=== PATIENT | female | born 1930 | race Caucasian/White ===

== ENCOUNTER → 2017-01-09 | Outpatient (CLI) | payer BC ==
[~2017-01-09] MED LIST: ASPI325T39 PO; CEFD1CAP14 PO; CHOL400T PO; CPR500 PO; ENOX30IN4 SQ; ERGO1CAP35 PO; FSMD/70 PO; LSN/10125 PO; MAGN400T6 PO; MGNO400 PO; MRLP17X PO; MULT-190 PO; OCCUVITE PO; OXYC-57 PO; PANT40TA PO; PRN10125 PO; SIMV40TA2 PO
[2017-01-09 10:56] LABS: HEMATOCRIT 42.5 % (37-47); MEAN CELL VOLUME 100.2 fL (80-100); MEAN CORPUSCULAR HEMOGLOBIN 33.7 pg (25-34); MEAN CORPUSCULAR HGB CONC 33.6 g/dl (32-36); MEAN PLATELET VOLUME 10.8 fL (7.4-10.4); PLATELET COUNT 296 K/uL (130-400); RED BLOOD COUNT 4.24 M/uL (4.2-5.4); WHITE BLOOD COUNT 7.16 K/uL (4.8-10.8)
[2017-01-09 11:11] LABS: ALT/SGPT 18 U/L (12-78); BLOOD UREA NITROGEN 23 mg/dl (7-18); BUN/CREATININE RATIO 20.5 (10-20); CALCIUM 8.7 mg/dl (8.5-10.1); CARBON DIOXIDE 31 mmol/L (21-32); CHLORIDE 99 mmol/L (98-107); CHOLESTEROL 174 mg/dl (0-200); GLUCOSE 96 mg/dl (70-99); POTASSIUM 3.6 mmol/L (3.5-5.1); SODIUM 138 mmol/L (136-145)
[2017-01-09 11:16] LABS: ALB/GLOB RATIO 1.3 (0.9-2); ALKALINE PHOSPHATASE 67 U/L (45-117); AST/SGOT 8 U/L (15-37); CHOLESTEROL/HDL RATIO 1.8; HDL CHOLESTEROL 99 mg/dl; LDL CHOLESTEROL CALCULATED 61 mg/dl; TRIGLYCERIDES 72 mg/dl (0-150); VERY LOW DENSITY LIPOPROT CALC 14 mg/dl
== END | disposition home or self-care (01) ==
LOC: C.LABBC 08:36
PROVIDERS: ATTEND Family Medicine
DX: E55.9 Vitamin D deficiency, unspecified (principal); I10 Essential (primary) hypertension; E78.00 Pure hypercholesterolemia, unspecified; M81.0 Age-related osteoporosis without current pathological fracture; D64.9 Anemia, unspecified

== ENCOUNTER → 2017-02-12 | Outpatient (CLI) | payer BC | END | disposition home or self-care (01) | LOC: C.MAMM 12:48 | PROVIDERS: ATTEND Family Medicine | DX: M81.0 Age-related osteoporosis without current pathological fracture (principal); M85.839 Other specified disorders of bone density and structure, unspecified forearm ==

== ENCOUNTER → 2017-04-30 | Outpatient (CLI) | payer BC ==
--- NOTE | 2017-04-30 12:14 | DIAGNOSTIC IMAGING REPORT ---
PELVIS/BILATERAL HIP 2 VIEWS CLINICAL HISTORY: ACCIDENTAL FALL. Pelvic and right hip pain. COMPARISON STUDY: Left hip 05/11/2013. Pelvis 09/23/2011. FINDINGS: There is again noted a right hip hemiarthroplasty. Internal fixation of an old, healed left femoral intertrochanteric fracture. Heterotopic ossification within the right hip. The left hip hardware appears intact. Small amount of heterotopic ossification superior to the left greater trochanter. Small focal defect within the superior left femoral head with associated sclerosis. This may be due to chronic change. The sacrum appears intact. Mildly displaced left superior pubic ramus fracture. This demonstrates up to 4 mm of distraction. There is also nondisplaced left inferior pubic ramus fracture. IMPRESSION: 1. Acute left pubic ring fracture. 2. No acute fracture or dislocation within the right hip. 3. Postoperative changes as described above. Electronically signed by: Kar Acevedo M.D. 04/30/2017 12:12 PM Dictated Date/Time: 04/30/2017 12:07 PM
== END | disposition home or self-care (01) ==
LOC: C.RADBC 11:24
PROVIDERS: ATTEND Nurse Practitioner Adult Health
DX: S32.502A Unspecified fracture of left pubis, initial encounter for closed fracture (principal); W19.XXXA Unspecified fall, initial encounter

== ENCOUNTER 2017-06-16 19:16 | Emergency (ER) | payer BC ==
[~2017-06-16] VITALS: Ht 161.3 cm; Wt 48.0 kg
[~2017-06-16 19:16] MED LIST changes: -CEFD1CAP14 PO; -CHOL400T PO; -CPR500 PO; -FSMD/70 PO; -LSN/10125 PO; -MAGN400T6 PO; -MGNO400 PO; -MRLP17X PO; -MULT-190 PO; -PANT40TA PO
[2017-06-16 19:19] VITALS: TEMP 38.2; Ht 161.3 cm; Wt 48.0 kg
[2017-06-16] MEDS ORDERED: CEFTRIAXONE SOD INJ 1 GM ADDVIAL IV STA (19:34)
[2017-06-16] MEDS ORDERED: ACETAMINOPHEN 325 MG TAB PO STA (19:34)
[2017-06-16] MEDS ORDERED: SODIUM CHLORIDE 0.9% 1000ML 1,000 ML IV STA (19:34)
--- NOTE | 2017-06-16 20:03 | DIAGNOSTIC IMAGING REPORT ---
CHEST ONE VIEW PORTABLE CLINICAL HISTORY: fever COMPARISON STUDY: 05/10/2013 FINDINGS: The cardiac and mediastinal contours are normal. There is no evidence of focal pulmonary consolidation. There is no evidence of failure. No pleural effusions are visualized.[ There is a retrocardiac opacity consistent with a small hiatal hernia IMPRESSION: No active disease in the chest. Electronically signed by: Bert Lara M.D. 06/16/2017 8:01 PM Dictated Date/Time: 06/16/2017 8:01 PM
[2017-06-16] MEDS ORDERED: CHOL400T PO (20:05)
[2017-06-16] MEDS ORDERED: MAGN400T6 PO (20:05)
[2017-06-16] MEDS ORDERED: PANT40TA PO (20:05)
[2017-06-16] MEDS ORDERED: SIMV40TA2 PO (20:05)
[2017-06-16] MEDS ORDERED: FSMD/70 PO (20:05)
[2017-06-16] MEDS ORDERED: LSN/10125 PO (20:05)
[2017-06-16] MEDS ORDERED: MULT-190 PO (20:05)
[2017-06-16 20:12] LABS: BASO % 0.1 %; BASO ABS # 0.01 K/uL (0-0.2); COMPLETE YES; HEMATOCRIT 36.9 % (37-47); IG% 0.3 %; LYMPH % 5.1 %; LYMPH ABS # 0.73 K/uL (1.2-3.4); MEAN CELL VOLUME 99.7 fL (80-100); MEAN CORPUSCULAR HEMOGLOBIN 34.6 pg (25-34); MEAN CORPUSCULAR HGB CONC 34.7 g/dl (32-36); MEAN PLATELET VOLUME 9.3 fL (7.4-10.4); MONO % 6.6 %; NEUT % 87.9 %; PLATELET COUNT 280 K/uL (130-400); WHITE BLOOD COUNT 14.37 K/uL (4.8-10.8)
[2017-06-16 20:19] LABS: ISTAT CREATININE 0.9 mg/dl (0.6-1.3); ISTAT HEMOGLOBIN 12.2 g/dl (12.0-16.0); ISTAT IONIZED CALCIUM 1.12 mmol/l (1.12-1.32)
[2017-06-16 20:23] LABS: PROTHROMBIN TIME (PATIENT) 11.2 SECONDS (9.0-12.0)
[2017-06-16 20:34] LABS: ALT/SGPT 15 U/L (12-78); BLOOD UREA NITROGEN 20 mg/dl (7-18); BUN/CREATININE RATIO 21.4 (10-20); CALCIUM 9.1 mg/dl (8.5-10.1); CARBON DIOXIDE 31 mmol/L (21-32); CHLORIDE 96 mmol/L (98-107); CREATININE 0.93 mg/dl (0.60-1.20); GLUCOSE 132 mg/dl (70-99); MAGNESIUM 1.7 mg/dl (1.8-2.4); POTASSIUM 3.6 mmol/L (3.5-5.1); SODIUM 135 mmol/L (136-145)
[2017-06-16 20:35] LABS: URINE APPEARANCE CLOUDY (CLEAR); URINE BILIRUBIN NEG (NEG); URINE COLOR YELLOW; URINE NITRITE POS (NEG); URINE SPECIFIC GRAVITY 1.023 (1.000-1.030); UROBILINOGEN NEG (NEG); ZZURINE CULT IF INDIC CATH YES
[2017-06-16 20:36] LABS: MANUAL MICROSCOPIC REQUIRED? NO; REVIEW REQ? NO
[2017-06-16 20:40] LABS: ALKALINE PHOSPHATASE 101 U/L (45-117); AST/SGOT 9 U/L (15-37)
[2017-06-16 22:00] VITALS: BP 120/65; PULSE 71; O2SAT 94
[2017-06-16] MEDS ORDERED: CEFD1CAP14 PO (22:26)
--- NOTE | 2017-06-16 22:26 | Medical Consult ---
Consultation Date of Consultation: Jun 16, 2017. Attending Physician: Reason for Consultation: UTI History of Present Illness 86 year old female presented to [facility] with worsening confusion and was found to have a UTI. Patient says that for the past 2-3 weeks she has been more confused than usual. Her confusion comes and goes. She was forgetting to do her accounting and was forgetting how to add numbers making her frustrated. This morning her confusion was worse and she was then brought to the hospital. She has also had a loss of appetite for the past 2-3 weeks. In the ED she was found to have an infection on UA, with a WCC of 14 and temp of 38.2. She was given a dose of ceftriaxone, tylneol and was given 1 L of IV fluids. I was asked to go assess the patient for admission She denied any fevers, chills, nausea, vomiting, urinary symptoms, back pain, diarrhea, or abdominal pain Past Medical/Surgical History Osteopenia HTN HLD Esophagitis Partial R hip replacement Social History Smoking Status: Former Smoker Alcohol Use: socially (2 glasses of vodka daily) Drug Use: none Housing Status: lives alone Occupation Status: retired Allergies Coded Allergies: No Known Allergies (Unverified , 06/16/17) Home Medications Fosamax Vit D HCTZ/Lisinopril Mag Ox Pantoprazole Simvastatin Review of Systems Constitutional: No fever, No chills, No sweats Respiratory: No cough, No shortness of breath Cardiovascular: No chest pain, No edema, No palpitations Abdomen: No pain, No nausea, No vomiting, No diarrhea, No constipation Musculoskeletal: No joint pain, No muscle pain, No calf pain Genitourinary - Female: No dysuria, No urinary frequency, No urinary urgency, No urinary incontinence, No urinary retention, No hematuria Neurologic: + memory loss, No paralysis, No weakness Physical Exam Date Time Temp Pulse Resp B/P (MAP) Pulse Ox O2 Delivery O2 Flow Rate FiO2 06/16/17 22:00 71 20 120/65 94 Room Air 06/16/17 20:42 77 20 125/60 93 Room Air 06/16/17 19:54 84 06/16/17 19:19 38.2 99 20 123/52 93 Room Air General Appearance: WD/WN, no apparent distress ENT: hearing grossly normal, pharynx normal Neck: no adenopathy, no JVD, no carotid bruits Respiratory/Chest: lungs clear, no respiratory distress, no accessory muscle use Cardiovascular: regular rate, rhythm, no edema, no murmur, normal peripheral pulses Abdomen/GI: normal bowel sounds, non tender, soft Back: normal inspection, no CVA tenderness Extremities/Musculoskelatal: normal inspection, no calf tenderness, no pedal edema, normal range of motion, non-tender Neurologic/Psych: alert, normal mood/affect, oriented x 3 Skin: normal color, warm/dry, no rash Laboratory Results Last 24 Hours Test 06/16/17 19:52 06/16/17 20:02 06/16/17 20:07 06/16/17 20:20 White Blood Count 14.37 K/uL Red Blood Count 3.70 M/uL Hemoglobin 12.8 g/dL Hematocrit 36.9 % Mean Corpuscular Volume 99.7 fL Mean Corpuscular Hemoglobin 34.6 pg Mean Corpuscular Hemoglobin Concent 34.7 g/dl Platelet Count 280 K/uL Mean Platelet Volume 9.3 fL Neutrophils (%) (Auto) 87.9 % Lymphocytes (%) (Auto) 5.1 % Monocytes (%) (Auto) 6.6 % Eosinophils (%) (Auto) 0.0 % Basophils (%) (Auto) 0.1 % Neutrophils # (Auto) 12.64 K/uL Lymphocytes # (Auto) 0.73 K/uL Monocytes # (Auto) 0.95 K/uL Eosinophils # (Auto) 0.00 K/uL Basophils # (Auto) 0.01 K/uL RDW Standard Deviation 47.3 fL RDW Coefficient of Variation 13.0 % Immature Granulocyte % (Auto) 0.3 % Immature Granulocyte # (Auto) 0.04 K/uL Prothrombin Time 11.2 SECONDS Prothromb Time International Ratio 1.0 Sodium Level 135 mmol/L Potassium Level 3.6 mmol/L Chloride Level 96 mmol/L Carbon Dioxide Level 31 mmol/L Anion Gap 8.0 mmol/L 19.0 mmol/L Blood Urea Nitrogen 20 mg/dl Creatinine 0.93 mg/dl Est Creatinine Clear Calc Drug Dose 32.9 ml/min Estimated GFR () 64.5 Estimated GFR (Non- 55.6 BUN/Creatinine Ratio 21.4 Random Glucose 132 mg/dl Calcium Level 9.1 mg/dl Magnesium Level 1.7 mg/dl Total Bilirubin 0.7 mg/dl Direct Bilirubin 0.3 mg/dl Aspartate Amino Transf (AST/SGOT) 9 U/L Alanine Aminotransferase (ALT/SGPT) 15 U/L Alkaline Phosphatase 101 U/L Total Creatine Kinase 40 U/L Creatine Kinase MB < 0.5 ng/ml Creatine Kinase MB Ratio Troponin I < 0.015 ng/ml Total Protein 7.1 gm/dl Albumin 3.7 gm/dl Bedside Lactic Acid Venous 1.36 mmol/L Bedside Hemoglobin 12.2 g/dl Bedside Hematocrit 36 % Bedside Sodium 134 mEq/L Bedside Potassium 3.5 mEq/L Bedside Chloride 93 mEq/L Bedside Total CO2 26 mEq/l Bedside Blood Urea Nitrogen 19 mg/dl Bedside Creatinine 0.9 mg/dl Bedside Glucose (other) 137 mg/dl Bedside Ionized Calcium (King) 1.12 mmol/l Urine Color YELLOW Urine Appearance CLOUDY Urine pH 6.0 Urine Specific [place] 1.023 Urine Protein 1+ Urine Glucose (UA) NEG Urine Ketones TRACE Urine Occult Blood 1+ Urine Nitrite POS Urine Bilirubin NEG Urine Urobilinogen NEG Urine Leukocyte Esterase MODERATE Urine WBC (Auto) >30 /hpf Urine RBC (Auto) 5-10 /hpf Urine Hyaline Casts (Auto) 1-5 /lpf Urine Epithelial Cells (Auto) 10-20 /lpf Urine Bacteria (Auto) 4+ Assessment & Plan 86 year old female that presented to [facility] and was found to have a UTI. When assessing the patient she was orientated to person, place and time. She was not confused and was able to conversely freely in conversation. Her son and daughter in law were in the room with her. We thoroughly discussed the case with the family. They stated that after the patient left the hospital she would be going straight home with them to stay for however long the patient needed. They said they would be looking after her. Since the patients mental status was good, she did not have any focal signs of infection on exam and she had already received a dose of antibiotics and IV fluids in the ED it was decided to discharge the patient home with her family. This was discussed with the emergency room doctor who was in agreement with the plan. He said he would be prescribing her cefdinir 300mg bid. The family was in accordance with the plan. We discussed the fact that if the patient were to have any worsening fevers, nausea/vomiting, back pain, worsening confusion, dehydration or loss of appetite then to bring her straight back to the ED. The patient was encouraged to rest and drink plenty of fluids over the next couple days. She will be going home with her son and stay at his home for a few days Resident Physician Supervision Note: I was present with Dr. Beavers during the history and exam. I discussed the case with the resident and agree with the findings and plan as documented in the note. Any exceptions or clarifications are listed here: 86 y/o F HTN, HPL - presents with fever - has had intermittent bouts of confusion over 2-3 weeks Pt was not confused when assessed in ER - initial labs reveal a + UA OE AAO x 3 S1,2 R CTAB NT, ND No CCE P: Pt was assessed by myself the resident and the ER attending in presence of family As she is presently asymptomatic and returning home with her son - will be under supervision, we have advised that DC would be reasonable Pt will receive Omnicef - encouraged to maintain hydration and return to the ER if symptoms worsen - rigors, increased confusion, unremitting fevers or poor PO intake and lethargy Above discussed with pt and family at bedside Documented By: Aleks Ng
--- NOTE | 2017-06-17 01:43 | EMERGENCY ROOM VISIT NOTE ---
History Report prepared by Jhonatanibsaleem: Marina Almendarez Under the Supervision of: Dr. Kg Fernandes D.O. First contact with patient: 19:24 Chief Complaint: ALTERED MENTAL STATUS Stated Complaint: CANT WALK, SHAKING, INCOHERENT, DISORIENTED History of Present Illness The patient is an 86 year old female who presents to the Emergency Room with complaints of altered mental status. She is accompanied by several family members. Her family reports they came to her house around 1700 to get her for dinner and found her to be "shaking and disoriented". They note they have never seen her like that before and reports he seemed very confused. Her son states he was unsure if she had eaten today so he gave her some josh aye prior to arrival. He also reports that approximately 8 weeks ago, the patient fell down some stairs and suffered a concussion and hairline fracture of the hip. The patient admits she has been urinating more frequently recently. She denies any hematuria or dysuria. She is febrile here in the ED with a temperature of 38.2. Her last BM was this morning and normal. She also denies any recent falls, trauma, open wounds, headache, change in vision, chest pain, shortness of breath , nausea, vomiting, diarrhea, pain with urination, and melena. She does admit to urinating more frequently recently. Source of History: patient, family Onset: 1700 today Position: other (global) Associated Symptoms: + fevers, + urinary symptoms (more frequent urination) , No headache, No chest pain, No SOB, No nausea, No vomiting, No melena, No diarrhea Review of Systems See HPI for pertinent positives & negatives. A total of 10 systems reviewed and were otherwise negative. Past Medical & Surgical Medical Problems: (1) FX NECK OF FEMUR NOS-CL (2) GERD (gastroesophageal reflux disease) (3) Hyperlipidemia Social History Smoking Status: Former Smoker Alcohol Use: none Drug Use: none Marital Status: Housing Status: lives alone Occupation Status: retired Current/Historical Medications Scheduled Alendronate/Cholecalciferol (Fosamax+D 70MG/2800 Iu), 1 TABLET PO WK Cefdinir (Omnicef), 300 MG PO Q12H Cholecalciferol (Vitamin D), 400 UNITS PO DAILY Hctz/Lisinopril (Lisinopril/Hctz 10/12.5 Mg), 1 TAB PO DAILY Magnesium Oxide (Mag-Ox), 400 MG PO DAILY Ocuvite Preservision (Ocuvite Preservision), 1 TAB PO BID Simvastatin (Zocor), 40 MG PO QPM Scheduled PRN Pantoprazole (Protonix), 40 MG PO DAILY PRN for ACID REFLUX Allergies Coded Allergies: No Known Allergies (Unverified , 06/16/17) Physical Exam Vital Signs Date Time Temp Pulse Resp B/P (MAP) Pulse Ox O2 Delivery O2 Flow Rate FiO2 06/16/17 22:00 71 20 120/65 94 Room Air 06/16/17 20:42 77 20 125/60 93 Room Air 06/16/17 19:54 84 06/16/17 19:19 38.2 99 20 123/52 93 Room Air Physical Exam GENERAL: Patient is sitting up in bed, cachectic, in no acute distress and non- toxic EYE EXAM: normal conjunctiva, PERRL and EOM's grossly intact OROPHARYNX: no exudate, no erythema, lips, buccal mucosa, and tongue normal and mucous membranes are moist NECK: supple, no nuchal rigidity, no adenopathy, non-tender, no nuchal rigidity LUNGS: Clear to auscultation. Normal chest wall mechanics HEART: Tachycardic heart rate, no murmurs, S1 normal and S2 normal ABDOMEN: abdomen soft, non-tender, normo-active bowel sounds, no masses, no rebound or guarding. BACK: Back is symmetrical on inspection and there is no deformity, no midline tenderness, no CVA tenderness. SKIN: no rashes and no bruising UPPER EXTREMITIES: upper extremities are grossly normal. LOWER EXTREMITIES: No pitting edema. NEURO EXAM: Awake, alert, oriented to person, place but not year. No drift. Finger to nose intact. Gross sensation intact. Medical Decision & Procedures ER Provider Diagnostic Interpretation: Radiology results as stated below per my review and the radiologist's interpretation: CHEST ONE VIEW PORTABLE CLINICAL HISTORY: fever COMPARISON STUDY: 05/10/2013 FINDINGS: The cardiac and mediastinal contours are normal. There is no evidence of focal pulmonary consolidation. There is no evidence of failure. No pleural effusions are visualized. There is a retrocardiac opacity consistent with a small hiatal hernia IMPRESSION: No active disease in the chest. Electronically signed by: Bert Lara M.D. 06/16/2017 8:01 PM Laboratory Results 06/16/17 19:52 Red Blood Count 3.70, Mean Corpuscular Volume 99.7, Mean Corpuscular Hemoglobin 34.6, Mean Corpuscular Hemoglobin Concent 34.7, Mean Platelet Volume 9.3, Neutrophils (%) (Auto) 87.9, Lymphocytes (%) (Auto) 5.1, Monocytes (%) (Auto) 6.6, Eosinophils (%) (Auto) 0.0, Basophils (%) (Auto) 0.1, Neutrophils # (Auto) 12.64, Lymphocytes # (Auto) 0.73, Monocytes # (Auto) 0.95, Eosinophils # (Auto) 0.00, Basophils # (Auto) 0.01 06/16/17 19:52 Test 06/16/17 19:52 06/16/17 20:02 06/16/17 20:07 06/16/17 20:20 White Blood Count 14.37 K/uL (4.8-10.8) Red Blood Count 3.70 M/uL (4.2-5.4) Hemoglobin 12.8 g/dL (12.0-16.0) Hematocrit 36.9 % (37-47) Mean Corpuscular Volume 99.7 fL (80-100) Mean Corpuscular Hemoglobin 34.6 pg (25-34) Mean Corpuscular Hemoglobin Concent 34.7 g/dl (32-36) Platelet Count 280 K/uL (130-400) Mean Platelet Volume 9.3 fL (7.4-10.4) Neutrophils (%) (Auto) 87.9 % Lymphocytes (%) (Auto) 5.1 % Monocytes (%) (Auto) 6.6 % Eosinophils (%) (Auto) 0.0 % Basophils (%) (Auto) 0.1 % Neutrophils # (Auto) 12.64 K/uL (1.4-6.5) Lymphocytes # (Auto) 0.73 K/uL (1.2-3.4) Monocytes # (Auto) 0.95 K/uL (0.11-0.59) Eosinophils # (Auto) 0.00 K/uL (0-0.5) Basophils # (Auto) 0.01 K/uL (0-0.2) RDW Standard Deviation 47.3 fL (36.4-46.3) RDW Coefficient of Variation 13.0 % (11.5-14.5) Immature Granulocyte % (Auto) 0.3 % Immature Granulocyte # (Auto) 0.04 K/uL (0.00-0.02) Prothrombin Time 11.2 SECONDS (9.0-12.0) Prothromb Time International Ratio 1.0 (0.9-1.1) Est Creatinine Clear Calc Drug Dose 32.9 ml/min Estimated GFR () 64.5 Estimated GFR (Non- 55.6 BUN/Creatinine Ratio 21.4 (10-20) Calcium Level 9.1 mg/dl (8.5-10.1) Magnesium Level 1.7 mg/dl (1.8-2.4) Total Bilirubin 0.7 mg/dl (0.2-1) Direct Bilirubin 0.3 mg/dl (0-0.2) Aspartate Amino Transf (AST/SGOT) 9 U/L (15-37) Alanine Aminotransferase (ALT/SGPT) 15 U/L (12-78) Alkaline Phosphatase 101 U/L (45-117) Total Creatine Kinase 40 U/L (26-192) Creatine Kinase MB < 0.5 ng/ml (0.5-3.6) Creatine Kinase MB Ratio (0-3.0) Troponin I < 0.015 ng/ml (0-0.045) Total Protein 7.1 gm/dl (6.4-8.2) Albumin 3.7 gm/dl (3.4-5.0) Bedside Lactic Acid Venous 1.36 mmol/L (0.90-1.70) Bedside Hemoglobin 12.2 g/dl (12.0-16.0) Bedside Hematocrit 36 % (37-47) Bedside Sodium 134 mEq/L (135-144) Bedside Potassium 3.5 mEq/L (3.3-5.0) Bedside Chloride 93 mEq/L (101-112) Bedside Total CO2 26 mEq/l (24-31) Anion Gap 19.0 mmol/L (16-25) Bedside Blood Urea Nitrogen 19 mg/dl (7-18) Bedside Creatinine 0.9 mg/dl (0.6-1.3) Bedside Glucose (other) 137 mg/dl (70-99) Bedside Ionized Calcium (King) 1.12 mmol/l (1.12-1.32) Urine Color YELLOW Urine Appearance CLOUDY (CLEAR) Urine pH 6.0 (4.5-7.5) Urine Specific [place] 1.023 (1.000-1.030) Urine Protein 1+ (NEG) Urine Glucose (UA) NEG (NEG) Urine Ketones TRACE (NEG) Urine Occult Blood 1+ (NEG) Urine Nitrite POS (NEG) Urine Bilirubin NEG (NEG) Urine Urobilinogen NEG (NEG) Urine Leukocyte Esterase MODERATE (NEG) Urine WBC (Auto) >30 /hpf (0-5) Urine RBC (Auto) 5-10 /hpf (0-4) Urine Hyaline Casts (Auto) 1-5 /lpf (0-5) Urine Epithelial Cells (Auto) 10-20 /lpf (0-5) Urine Bacteria (Auto) 4+ (NEG) Laboratory results per my review. Medications Administered Medications (Trade) Dose Ordered Sig/Janice Route Start Time Stop Time Status Last Admin Dose Admin Sodium Chloride 1,000 ml @ 999 mls/hr Q1H1M STAT IV 06/16/17 19:34 06/16/17 20:34 DC 06/16/17 20:39 999 MLS/HR Acetaminophen (Tylenol Tab) 650 mg NOW STAT PO 06/16/17 19:34 06/16/17 19:37 DC 06/16/17 20:37 650 MG Ceftriaxone Sodium (Rocephin Inj) 1 gm NOW STAT IV 06/16/17 19:34 06/16/17 19:37 DC 06/16/17 20:37 1 GM ECG Indication: altered mental status Rate (beats per minute): 78 Rhythm: sinus rhythm Findings: no ectopy, other (normal axis) ED Course ED COURSE: Vital signs were reviewed and showed the patient is tachycardic and febrile. The patients medical record was reviewed The above diagnostic studies were performed and reviewed. ED treatments and interventions as stated above. 1923: The patient was evaluated in room A3. A complete history and physical examination was performed. 1933: Rocephin 1 gm IV, Acetaminophen 650 mg PO, NSS 1000 ml @ 999 mls/hr IV. 2049: Upon reevaluation, the patient is resting comfortably. I discussed my findings with the patient and she and her family understand and agrees with the treatment plan. 2052: I discussed the patients case with Dr. Ng, [facility] Hospitalist. The patient will be further evaluated. 2154: Dr. Ng informed me after talking with the patient, she and her family have decided they would like to go home. I will reevaluate the patient and speak with her family. 2219: I reevaluated the patient and spoke with her family. Her family states they would like to take her home and the patient is agreeable to this. I explained the risks and benefits associated with taking her home and her family verbalized complete understanding and agreement. Based on the patients age, coexisting illnesses, exam and lab findings the decision to treat as an outpatient was made. The patient remained stable while under my care. The patient will be evaluated for further management. Medical Decision Differential diagnoses includes but is not limited to toxic, metabolic, infectious, traumatic, cardiac, neurologic, hematologic, psychiatric and inflammatory etiologies. Patient is an 86-year-old female brought in by family and notes that today she has been slightly confused off of her baseline. They noted that she does not remember things. She currently does not know the year. Otherwise completely nontoxic intact. She admits to increased urinary frequency and a runny nose. Patient was febrile. Heart rate was in the 90s. Meeting Sirs criteria. Sepsis order set was used. White count was 14,000. UA shows a clear UTI. She was given a gram of Rocephin. Consult internal medicine for admission. They evaluated the patient after discussing with family at length recommended discharge on Omnicef. Patient was feeling better family preferred to take the patient home chest importance of staying they didn't want to go home. The patient requested to leave. I considered this to be leaving against medical advice. I personally discussed the following with them. They currently had a medical condition of: sepsis and I am concerned that they have urosepsis even despite feeling better. My proposed course of evaluation and treatment and that of any consultants is: admission. Benefits would include: possible diagnosis or excluding of bacteremia or an alternative serious condition, which if identified early would lead to appropriate intervention in a timely manner lessing the burden of disability and . Risks of leaving before this had been completed include: misdiagnosis, worsening illness leading up to and including prolonged or permanent disability or . Specific risks pertinent, but not all inclusive, of their current medical condition include but are not limited to: disability. Despite this they stated they wanted to leave due to patient feeling better and them being able to stay with her and refused further evaluation, treatment, or admission at this time. They appear clinically sober, to be mentating appropriately, free from distracting injury, have controlled pain, appear to have intact insight, judgment, and reason and in my opinion have the capacity to make this decision. Specifically, they were able to verbally state back in a coherent manner their current medical condition/ current diagnosis, the proposes course of treatment, and the risks, benefits, and alternatives of treatment versus leaving against medical advice. They understand that they may return to seek medical attention here at whatever time they want. I highly advised them to return to the Emergency Department immediately if they experienced any: Diffuse shaking, persistent fevers, confusion, reconsidered treatment a/o admission, or had any other concerns. This would be without any repercussions. Medication Reconcilliation Current Medication List: was personally reviewed by me Blood Pressure Screening Patient's blood pressure: Normal blood pressure Blood pressure disposition: Did not require urgent referral Consults Time Called: 2049 Consulting Physician: Dr. Ng, [facility] Hospitalist Returned Call: 2052 I discussed the patients case with Dr. Ng, [facility] Hospitalist. The patient will be further evaluated. Impression Primary Impression: Sepsis Additional Impression: Urinary tract infection Scribe Attestation The scribe's documentation has been prepared under my direction and personally reviewed by me in its entirety. I confirm that the note above accurately reflects all work, treatment, procedures, and medical decision making performed by me. Departure Information Dispostion Home / Self-Care Prescriptions Cefdinir (Omnicef) 300 Mg Cap 300 MG PO Q12H for 10 Days, #20 CAP Prov: Kg Fernandes, 06/16/17 Referrals Mei Matta MD (PCP) Patient Instructions ED UTI Cystitis Female, My [facility], Sepsis Dc Additional Instructions Please follow up with your primary care doctor or if you are a student, [facility] with in the next 24 hours. Any worsening of your symptoms, please return to the ED immediately. This includes any fevers greater than 100.4, worsening pain, chest pain, shortness breath, persistent nausea, vomiting, unable to eat or drink, or any other concerning signs or symptoms from your standpoint. You were found to have a blood pressure greater than 120 systolic over 90 diastolic. Due to the new Medicare guidelines, we are now recommending that you follow up with your primary care doctor in regards to this elevated blood pressure. Please take antibiotics as prescribed. Problem Qualifiers Primary Impression: Sepsis Sepsis type: sepsis due to unspecified organism Qualified Codes: A41.9 - Sepsis, unspecified organism Additional Impression: Urinary tract infection Urinary tract infection type: site unspecified Hematuria presence: with hematuria Qualified Codes: N39.0 - Urinary tract infection, site not specified ; R31.9 - Hematuria, unspecified
[2017-06-17] MEDS ORDERED: CEFD1CAP14 PO (18:48)
--- NOTE | 2017-06-18 13:23 | Pharmacy Progress Note ---
ED Pharmacist Culture FollowUp Date of Service: Jun 18, 2017. Patient left AMA with suspected urosepsis and was sent home with a prescription for cefdinir, which should cover the E. Coli growing from the patient's urine culture. The patient also has a positive blood culture for gram negative bacilli , most likely indicative of E. Coli urosepsis. Patient received 1 dose of IV rocephin while in the ER. Discussed case with Dr. Jauregui and attempted to contact the patient to relay results and recommend further care, but patient did not answer. Awaiting return call.
== END 2017-06-16 22:35 | disposition home or self-care (01) ==
LOC: C.EDB 19:17 → C.EDA 22:35
DX: A41.9 Sepsis, unspecified organism (principal); N39.0 Urinary tract infection, site not specified; R31.9 Hematuria, unspecified; E78.5 Hyperlipidemia, unspecified; I10 Essential (primary) hypertension; Z91.81 History of falling; Z87.891 Personal history of nicotine dependence; Z96.641 Presence of right artificial hip joint; Z79.899 Other long term (current) drug therapy

== ENCOUNTER 2017-06-17 18:35 | Inpatient (IN) | payer BC, OTHER ==
[~2017-06-17] VITALS: Ht 160 cm; Wt 47.3 kg
[~2017-06-17 18:35] MED LIST changes: -ASPI325T39 PO; +CEFD1CAP14 PO; +CHOL400T PO; -ENOX30IN4 SQ; -ERGO1CAP35 PO; +FSMD/70 PO; +LSN/10125 PO; +MAGN400T6 PO; +MULT-190 PO; -OCCUVITE PO; -OXYC-57 PO; +PANT40TA PO; -PRN10125 PO
[2017-06-17] MEDS ORDERED: SODIUM CHLORIDE 0.9% 1000ML 1,000 ML IV STA (18:45)
[2017-06-17] MEDS ORDERED: ONDANSETRON INJ 2 MG/ML 2 ML VIAL IV STA (18:45)
[2017-06-17] MEDS ORDERED: CEFTRIAXONE SOD INJ 1 GM ADDVIAL IV STA (18:45)
[2017-06-17] MEDS ORDERED: ONDANSETRON INJ 2 MG/ML 2 ML VIAL ONE (18:48)
[2017-06-17] MEDS ORDERED: CEFD1CAP14 PO (18:48)
[2017-06-17 19:06] LABS: COMPLETE YES; HEMATOCRIT 37.9 % (37-47); IG% 0.3 %; LYMPH % 5.5 %; LYMPH ABS # 0.92 K/uL (1.2-3.4); MEAN CELL VOLUME 99.7 fL (80-100); MEAN CORPUSCULAR HEMOGLOBIN 34.5 pg (25-34); MEAN CORPUSCULAR HGB CONC 34.6 g/dl (32-36); MEAN PLATELET VOLUME 9.6 fL (7.4-10.4); MONO % 7.3 %; NEUT % 86.9 %; PLATELET COUNT 272 K/uL (130-400); WHITE BLOOD COUNT 16.69 K/uL (4.8-10.8)
[2017-06-17] MEDS ORDERED: SODIUM CHLORIDE 0.9% 500ML 500 ML IV STA (19:08)
[2017-06-17 19:16] LABS: INR 1.1 (0.9-1.1); PROTHROMBIN TIME (PATIENT) 11.3 SECONDS (9.0-12.0)
[2017-06-17 19:17] LABS: ISTAT CREATININE 0.8 mg/dl (0.6-1.3); ISTAT HEMOGLOBIN 13.9 g/dl (12.0-16.0); ISTAT IONIZED CALCIUM 0.84 mmol/l (1.12-1.32)
--- NOTE | 2017-06-17 19:18 | DIAGNOSTIC IMAGING REPORT ---
CHEST ONE VIEW PORTABLE CLINICAL HISTORY: 86 years-old Female presenting with fever. TECHNIQUE: Portable upright AP view of the chest was obtained. COMPARISON: 06/16/2017. FINDINGS: Atherosclerosis of aortic arch through the cardiac silhouette normal in size. Minimal basilar opacities. No large effusion or pneumothorax. Focal kyphotic deformity suggested secondary to altered appearance of a lower thoracic vertebral body. Upper abdomen normal. IMPRESSION: 1. Minimal bibasilar atelectasis. No other focal infiltrate to suggest pneumonia. 2. Focal kyphotic deformity suggested secondary to altered appearance of the lower thoracic vertebral body. Electronically signed by: Luis E Cornejo M.D. 06/17/2017 7:16 PM Dictated Date/Time: 06/17/2017 7:15 PM
[2017-06-17 19:27] LABS: ALKALINE PHOSPHATASE 93 U/L (45-117); ALT/SGPT 17 U/L (12-78); AST/SGOT 19 U/L (15-37); BLOOD UREA NITROGEN 22 mg/dl (7-18); BUN/CREATININE RATIO 24.1 (10-20); CALCIUM 7.9 mg/dl (8.5-10.1); CARBON DIOXIDE 28 mmol/L (21-32); CHLORIDE 93 mmol/L (98-107); CKMB/CK RATIO 0.6 (0-3.0); GLUCOSE 104 mg/dl (70-99); MAGNESIUM 1.7 mg/dl (1.8-2.4); POTASSIUM 3.7 mmol/L (3.5-5.1); SODIUM 129 mmol/L (136-145)
[2017-06-17] MEDS ORDERED: ALUMINUM/MAGNESIUM/SIMETH (MAALOX MAX) 30 ML UDC PO PRN (19:30)
[2017-06-17] MEDS ORDERED: ACETAMINOPHEN 325 MG TAB PO PRN (19:30)
[2017-06-17] MEDS ORDERED: POLYETHYLENE (MIRALAX) 17 GM PACK PO PRN (19:30)
[2017-06-17] MEDS ORDERED: ONDANSETRON INJ 2 MG/ML 2 ML VIAL IV PRN (19:30)
[2017-06-17] MEDS ORDERED: MAGNESIUM HYDROXIDE SUSP 30 ML UDC PO PRN (19:30)
[2017-06-17] MEDS ORDERED: LORAZEPAM 2 MG/ML 1 ML VIAL IV PRN (19:30)
--- NOTE | 2017-06-17 19:53 | History and Physical ---
History & Physical Date of Service Jun 17, 2017. History & Physical Reason for Consultation: UTI History of Present Illness 86 y/o F HTN, HPL - presented with fever 06/16 - has had intermittent bouts of confusion over 2-3 weeks. Pt was not confused when assessed in ER - initial labs reveal a + UA and following IVF and IV antibiotics, decision was made to DC home. She was under the care of family who would be able to look after her in the event of worsening confusion. She had persistent fevers in addition to confusion throughout the day at home. She also developed nausea and vomiting and was therefore unable to tolerate her medication. Initial labs are consistent with dehydration although not RF in addition to leukocytosis. Hyperkalemia is present although we are pending a repeat as this may be hemolyzed. Past Medical/Surgical History 1) Osteopenia 2) HTN 3) HPL 4) Esophagitis 5) Partial R hip replacement Social History Smoking Status: Former Smoker Alcohol Use: socially - drinks 2 vodka martinis daily - states they are weak drinks Drug Use: none Housing Status: lives alone Occupation Status: retired Allergies Coded Allergies: No Known Allergies (Unverified , 06/16/17) Home Medications Fosamax Vit D HCTZ/Lisinopril Mag Ox Pantoprazole Simvastatin Review of Systems Constitutional: Fevers, rigors, confusion reported by family - awake alert in ER Respiratory: No cough, No shortness of breath Cardiovascular: No chest pain, No edema, No palpitations Abdomen: No pain, No nausea, No vomiting, No diarrhea, No constipation Musculoskeletal: No joint pain, No muscle pain, No calf pain Genitourinary - Female: No dysuria, No urinary frequency, No urinary urgency, No urinary incontinence, No urinary retention, No hematuria Neurologic: + memory loss, No paralysis, + weakness Physical Exam Date Time Temp Pulse Resp B/P (MAP) Pulse Ox O2 Delivery O2 Flow Rate FiO2 06/16/17 22:00 71 20 120/65 94 Room Air 06/16/17 20:42 77 20 125/60 93 Room Air 06/16/17 19:54 84 06/16/17 19:19 38.2 99 20 123/52 93 Room Air General Appearance: Thin elderly female no acute distress ENT: hearing grossly normal, pharynx normal Neck: no adenopathy, no JVD, no carotid bruits Respiratory/Chest: lungs clear, no respiratory distress, no accessory muscle use Cardiovascular: regular rate, rhythm, no edema, no murmur, normal peripheral pulses Abdomen/GI: normal bowel sounds, non tender, soft Back: normal inspection, no CVA tenderness Extremities/Musculoskelatal: normal inspection, no calf tenderness, no pedal edema, normal range of motion, non-tender Neurologic/Psych: alert, normal mood/affect, oriented x 3 Skin: normal color, warm/dry, no rash Laboratory Results WBC 17 Na 124, K pending, Cl 93, Bicarb 23, BUN 31, creat 0.8 Assessment & Plan 86 y/o F HTN, HPL - presented with fever 06/16 - has had intermittent bouts of confusion over 2-3 weeks. Pt was not confused when assessed in ER - initial labs reveal a + UA and following IVF and IV antibiotics, decision was made to DC home. She was under the care of family who would be able to look after her in the event of worsening confusion. She had persistent fevers in addition to confusion throughout the day at home. She also developed nausea and vomiting and was therefore unable to tolerate her medication. Initial labs are consistent with dehydration although not RF in addition to leukocytosis. Hyperkalemia is present although we are pending a repeat as this may be hemolyzed. 1) UTI - SIRS/sepsis - Pt was febrile on arrival - does not display tachycardia , hypoxia or confusion on admission. Urine cultures from yesterday display G- rods so that we will continue Ceftriaxone - will broaden coverage AM if no adequate response - she was not able to tolerate her prescribed Omnicef so has essentially received only a single dose of antibiotics. 2) HTN - HCTZ/Lisin held due to dehydration and possibly hyperK - we are pending a repeat K as this is presumed hemolyzed - her EKG is not consistent with hyperK 3) HPL - cont Statin Tx 4) Confusion - may be worse over last few days, however, family states that this is a long-term issue. When her infection resolves, mental health assessment may be prudent as she normally lives alone. I was able to confirm that her ETOH intake is moderate. Full code - Heparin prophylaxis Total time for this admit including review of labs, meds, imaging, EKG, records - discussion with pt, family, ER attending - 40 min
[2017-06-17 20:38] VITALS: BP 103/48; PULSE 69; TEMP 37.3; O2SAT 98; Ht 160 cm; Wt 47.3 kg
[2017-06-17 21:32] LABS: CALCIUM 7.2 mg/dl (8.5-10.1); CREATININE 0.67 mg/dl (0.60-1.20)
[2017-06-17] MEDS: SODIUM CHLORIDE 0.9% 1000ML 1,000 ML IV SCH (21:50)
[2017-06-17] MEDS: SIMVASTATIN 40 MG TAB PO SCH (21:50)
[2017-06-17] MEDS: PANTOprazole SOD 40 MG TAB PO PRN (21:50)
[2017-06-17] MEDS: HEPARIN SOD 5000 UNIT/0.5 ML CARP SQ SCH (21:52)
[2017-06-17 23:54] LABS: BUN/CREATININE RATIO 29.3 (10-20); CALCIUM 6.9 mg/dl (8.5-10.1); CREATININE 0.65 mg/dl (0.60-1.20); POTASSIUM 2.9 mmol/L (3.5-5.1)
[2017-06-17 23:57] VITALS: BP 91/49; PULSE 59; TEMP 37.3; O2SAT 92
[2017-06-18] VITALS (7 sets, daily range): BP systolic 97–143; BP diastolic 58–78; PULSE 51–86; TEMP 36.7–36.8; O2SAT 94–96
[2017-06-18] MEDS ORDERED: POTASSIUM CHLORIDE 20 MEQ TABCR PO ONE (00:07)
--- NOTE | 2017-06-18 01:08 | EMERGENCY ROOM VISIT NOTE ---
History Report prepared by Diana: Oralia Munguia Under the Supervision of: Dr. Kg Fernandes D.O. First contact with patient: 18:37 Stated Complaint: ALTERED MENTAL STATUS, SHAKY History of Present Illness The patient is an 86 year old female who presents to the Emergency Room with complaints of worsening AMS since yesterday. The patient was evaluated in the ED yesterday and her only complaint was urinary frequency and a chronic runny nose. They brought her in at that time as she was febrile and having chills. They also noted that she was slightly confused. She had a temperature of 38.2 and labs showed a WBC of 14,500. Urine showed a clear UTI. The patient was evaluated by internal medicine for admission. She was improved and family wanted to take her home. She was discharged on Omnicef per Dr. Ng and Dr. Yeager. Today the patient is more confused and is nauseated and vomiting. She is still having frequent urination. She denies headache, chest pain, shortness of breath, and abdominal pain. She has no other complaints at this time Source of History: patient Onset: yesterday Position: other (global) Quality: other (altered) Timing: worsening Modifying Factors (Worsening): other (UTI) Associated Symptoms: + fevers, + nausea, + vomiting, + urinary symptoms, No headache, No chest pain, No SOB, No abdominal pain Review of Systems See HPI for pertinent positives & negatives. A total of 10 systems reviewed and were otherwise negative. Past Medical & Surgical Medical Problems: (1) FX NECK OF FEMUR NOS-CL (2) GERD (gastroesophageal reflux disease) (3) Hyperlipidemia (4) UTI (urinary tract infection) Family History Non-pertinent due to advanced age. Social History Smoking Status: Former Smoker Alcohol Use: none Drug Use: none Marital Status: Housing Status: lives alone Occupation Status: retired Current/Historical Medications Scheduled Alendronate/Cholecalciferol (Fosamax+D 70MG/2800 Iu), 1 TABLET PO WK Cefdinir (Omnicef), 300 MG PO Q12H Cholecalciferol (Vitamin D), 400 UNITS PO DAILY Hctz/Lisinopril (Lisinopril/Hctz 10/12.5 Mg), 1 TAB PO DAILY Magnesium Oxide (Mag-Ox), 400 MG PO DAILY Ocuvite Preservision (Ocuvite Preservision), 1 TAB PO BID Simvastatin (Zocor), 40 MG PO QPM Scheduled PRN Pantoprazole (Protonix), 40 MG PO DAILY PRN for ACID REFLUX Allergies Coded Allergies: No Known Allergies (Unverified , 06/16/17) Physical Exam Vital Signs Date Time Temp Pulse Resp B/P (MAP) Pulse Ox O2 Delivery O2 Flow Rate FiO2 06/17/17 19:02 85 06/17/17 18:48 97 Room Air 06/17/17 18:43 37.9 102 22 152/118 96 Room Air Physical Exam GENERAL: alert, well appearing, sitting up in bed, malnourished, no distress, non-toxic, intermittently dry heaving EYE EXAM: normal conjunctiva, PERRL and EOM's grossly intact OROPHARYNX: no exudate, no erythema, lips, buccal mucosa, and tongue normal and mucous membranes are moist NECK: supple, no nuchal rigidity, no adenopathy, non-tender LUNGS: Clear to auscultation. Normal chest wall mechanics HEART: Tachycardic, no murmurs, S1 normal and S2 normal ABDOMEN: abdomen soft, non-tender, normo-active bowel sounds, no masses, no rebound or guarding. BACK: Back is symmetrical on inspection and there is no deformity, no midline tenderness, no CVA tenderness. SKIN: no rashes and no bruising UPPER EXTREMITIES: upper extremities are grossly normal. LOWER EXTREMITIES: No pitting edema. NEURO EXAM: Awake, alert, oriented to person and place but not year. No weakness of the upper or lower extremities. Medical Decision & Procedures ER Provider Diagnostic Interpretation: Radiology results as stated below per my review and the radiologist's interpretation: CHEST ONE VIEW PORTABLE CLINICAL HISTORY: 86 years-old Female presenting with fever. TECHNIQUE: Portable upright AP view of the chest was obtained. COMPARISON: 06/16/2017. FINDINGS: Atherosclerosis of aortic arch through the cardiac silhouette normal in size. Minimal basilar opacities. No large effusion or pneumothorax. Focal kyphotic deformity suggested secondary to altered appearance of a lower thoracic vertebral body. Upper abdomen normal. IMPRESSION: 1. Minimal bibasilar atelectasis. No other focal infiltrate to suggest pneumonia. 2. Focal kyphotic deformity suggested secondary to altered appearance of the lower thoracic vertebral body. Electronically signed by: Luis E Cornejo M.D. 06/17/2017 7:16 PM Dictated Date/Time: 06/17/2017 7:15 PM Laboratory Results 06/17/17 18:55 Red Blood Count 3.80, Mean Corpuscular Volume 99.7, Mean Corpuscular Hemoglobin 34.5, Mean Corpuscular Hemoglobin Concent 34.6, Mean Platelet Volume 9.6, Neutrophils (%) (Auto) 86.9, Lymphocytes (%) (Auto) 5.5, Monocytes (%) (Auto) 7.3, Eosinophils (%) (Auto) 0.0, Basophils (%) (Auto) 0.0, Neutrophils # (Auto) 14.50, Lymphocytes # (Auto) 0.92, Monocytes # (Auto) 1.22, Eosinophils # (Auto) 0.00, Basophils # (Auto) 0.00 Test 06/17/17 18:55 06/17/17 19:01 06/17/17 19:04 White Blood Count 16.69 K/uL (4.8-10.8) Red Blood Count 3.80 M/uL (4.2-5.4) Hemoglobin 13.1 g/dL (12.0-16.0) Hematocrit 37.9 % (37-47) Mean Corpuscular Volume 99.7 fL (80-100) Mean Corpuscular Hemoglobin 34.5 pg (25-34) Mean Corpuscular Hemoglobin Concent 34.6 g/dl (32-36) Platelet Count 272 K/uL (130-400) Mean Platelet Volume 9.6 fL (7.4-10.4) Neutrophils (%) (Auto) 86.9 % Lymphocytes (%) (Auto) 5.5 % Monocytes (%) (Auto) 7.3 % Eosinophils (%) (Auto) 0.0 % Basophils (%) (Auto) 0.0 % Neutrophils # (Auto) 14.50 K/uL (1.4-6.5) Lymphocytes # (Auto) 0.92 K/uL (1.2-3.4) Monocytes # (Auto) 1.22 K/uL (0.11-0.59) Eosinophils # (Auto) 0.00 K/uL (0-0.5) Basophils # (Auto) 0.00 K/uL (0-0.2) RDW Standard Deviation 47.4 fL (36.4-46.3) RDW Coefficient of Variation 13.0 % (11.5-14.5) Immature Granulocyte % (Auto) 0.3 % Immature Granulocyte # (Auto) 0.05 K/uL (0.00-0.02) Prothrombin Time 11.3 SECONDS (9.0-12.0) Prothromb Time International Ratio 1.1 (0.9-1.1) Magnesium Level 1.7 mg/dl (1.8-2.4) Total Bilirubin 0.5 mg/dl (0.2-1) Direct Bilirubin 0.2 mg/dl (0-0.2) Aspartate Amino Transf (AST/SGOT) 19 U/L (15-37) Alanine Aminotransferase (ALT/SGPT) 17 U/L (12-78) Alkaline Phosphatase 93 U/L (45-117) Total Creatine Kinase 363 U/L (26-192) Creatine Kinase MB 2.3 ng/ml (0.5-3.6) Creatine Kinase MB Ratio 0.6 (0-3.0) Troponin I < 0.015 ng/ml (0-0.045) Total Protein 6.5 gm/dl (6.4-8.2) Albumin 3.1 gm/dl (3.4-5.0) Bedside Lactic Acid Venous 2.73 mmol/L (0.90-1.70) Bedside Hemoglobin 13.9 g/dl (12.0-16.0) Bedside Hematocrit 41 % (37-47) Bedside Sodium 124 mEq/L (135-144) Bedside Potassium 6.4 mEq/L (3.3-5.0) Bedside Chloride 93 mEq/L (101-112) Bedside Total CO2 27 mEq/l (24-31) Bedside Blood Urea Nitrogen 31 mg/dl (7-18) Bedside Creatinine 0.8 mg/dl (0.6-1.3) Bedside Glucose (other) 107 mg/dl (70-99) Bedside Ionized Calcium (King) 0.84 mmol/l (1.12-1.32) Laboratory results per my review. Medications Administered Medications (Trade) Dose Ordered Sig/Janice Route Start Time Stop Time Status Last Admin Dose Admin Sodium Chloride 1,000 ml @ 999 mls/hr Q1H1M STAT IV 06/17/17 18:45 06/17/17 19:45 DC 06/17/17 18:54 999 MLS/HR Ceftriaxone Sodium (Rocephin Inj) 1 gm NOW STAT IV 06/17/17 18:45 06/17/17 18:47 DC 06/17/17 18:55 1 GM Ondansetron HCl (Zofran Inj) 4 mg NOW STAT IV 06/17/17 18:45 06/17/17 18:47 DC 06/17/17 18:55 4 MG Sodium Chloride 500 ml @ 999 mls/hr Q31M STAT IV 06/17/17 19:08 06/17/17 19:38 DC 06/17/17 19:08 999 MLS/HR Sodium Chloride 1,000 ml @ 125 mls/hr Q8H IV 06/17/17 19:30 06/18/17 11:29 06/17/17 21:50 125 MLS/HR Pantoprazole Sodium (Protonix Tab) 40 mg DAILY PRN PO 06/17/17 19:30 07/17/17 19:29 06/17/17 21:50 40 MG ECG Indication: vomiting Rate (beats per minute): 84 Rhythm: normal sinus Findings: no acute ischemic change, other (normal axis, poor baseline in the inferior leads) ED Course ED COURSE: Vital signs were reviewed and showed febrile and tachycardic. The patients medical record was reviewed The above diagnostic studies were performed and reviewed. ED treatments and interventions as stated above. 1836: The patient was evaluated in room A9B. A complete history and physical examination was performed. 1845: Zofran 4 mg IV, Rocephin 1 gm IV, NSS 1000 ml @ 999 mls/hr IV 185: I updated the patient and her family. 1907: NSS 500 ml @ 999 mls/hr IV 1934: Upon reevaluation, the patient is resting comfortably. Family states that she was doing well yesterday and this morning she refused to drink fluids and was more tired. I discussed my findings with the patient and her family and they understand and agree with the treatment plan. Based on the patients age, coexisting illnesses, exam and lab findings the decision to treat as an inpatient was made. The patient remained stable while under my care. The patient will be evaluated for further management. 1937: Dr. Ng of the [facility] will evaluate the patient for further management. Medical Decision Differential diagnosis includes etiologies such as sepsis, UTI, pneumonia, metabolic, electrolyte abnormalities, cardiac sources, intracerebral event, toxicologic, neurologic, as well as others were entertained. Patient is an 86 year old female who presented last night with same symptoms. At that time she was febrile, tachycardic and slightly confused. She was found to have a mild leukocytosis. She was septic secondary to a UTI. I consult internal medicine and she was evaluated for admission. Her mentation improved back to baseline. Family requested to take her home. Internal medicine performed a consult and recommended discharging. I had a long conversation with family and they preferred to take the patient home. Today they noticed that the patient began to become confused again. She stopped drinking fluids. Once again she was febrile and tachycardic. White count was 16,000 this time. Lactic acid was slightly elevated 2.7. She was given bolus normal saline. She was given IV Rocephin again. She was admitted to internal medicine with sepsis secondary to UTI. Medication Reconcilliation Current Medication List: was personally reviewed by me Blood Pressure Screening Patient's blood pressure: Normal blood pressure Impression Primary Impression: Sepsis Additional Impression: UTI (urinary tract infection) Scribe Attestation The scribe's documentation has been prepared under my direction and personally reviewed by me in its entirety. I confirm that the note above accurately reflects all work, treatment, procedures, and medical decision making performed by me. Departure Information Dispostion Being Evaluated By Hospitalist Referrals Mei Matta MD (PCP) Problem Qualifiers Primary Impression: Sepsis Sepsis type: sepsis due to unspecified organism Qualified Codes: A41.9 - Sepsis, unspecified organism Additional Impression: UTI (urinary tract infection) Urinary tract infection type: site unspecified Hematuria presence: with hematuria Qualified Codes: N39.0 - Urinary tract infection, site not specified ; R31.9 - Hematuria, unspecified
[2017-06-18] MEDS: POTASSIUM CHLR 10 MEQ / WTR 10 MEQ in PREMIXED WATER 100 ML IV SCH ×2 (01:10→02:59)
[2017-06-18 05:40] LABS: BUN/CREATININE RATIO 27.2 (10-20); CREATININE 0.64 mg/dl (0.60-1.20); MAGNESIUM 1.6 mg/dl (1.8-2.4); POTASSIUM 3.8 mmol/L (3.5-5.1)
[2017-06-18] MEDS: HEPARIN SOD 5000 UNIT/0.5 ML CARP SQ SCH ×3 (05:53→20:46)
[2017-06-18] MEDS: SODIUM CHLORIDE 0.9% 1000ML 1,000 ML IV SCH (05:53)
[2017-06-18 06:19] LABS: COMPLETE YES; IG% 0.3 %; LYMPH % 7.5 %; LYMPH ABS # 0.87 K/uL (1.2-3.4); MEAN CELL VOLUME 102.3 fL (80-100); MEAN CORPUSCULAR HEMOGLOBIN 33.7 pg (25-34); MEAN CORPUSCULAR HGB CONC 32.9 g/dl (32-36); MEAN PLATELET VOLUME 10.1 fL (7.4-10.4); MONO % 11.2 %; PLATELET COUNT 246 K/uL (130-400); RED BLOOD COUNT 3.03 M/uL (4.2-5.4); WHITE BLOOD COUNT 11.58 K/uL (4.8-10.8)
[2017-06-18] MEDS: POTASSIUM CHLORIDE 20 MEQ TABCR PO SCH ×3 (07:48→20:48)
[2017-06-18] MEDS: MAGNESIUM OXIDE 400 MG TAB PO SCH ×2 (09:07→20:47)
--- NOTE | 2017-06-18 09:49 | Clinical Documentation Query ---
QUERY 1 OF [address] ZAPATA, In your clinical opinion is this patient being managed for: (x ) Metabolic encephalopathy ( ) Not Agree ( ) Other explanation of clinical findings (Please Explain) ( ) Unable to determine (Please Define) ( ) Need to Discuss The medical record reflects the following clinical findings, treatment, and risk factors. Clinical Indicators: 86 yo female presenting with fever, increasing confusion. Family reported confusion was worse but has baseline confusion. Na 129, BUN 22, K 3.0. Treatment: 1.5 L NSS bolus, then continuous fluids, IV rocephin, IV K riders Risk Factors: sepsis, UTI QUERY 2 OF 2 In your clinical opinion is this patient being managed for: ( ) Hyponatremia ( x) Not Agree - has mild hyponatremia, but is not really an active management situation ( ) Other explanation of clinical findings (Please Explain) ( ) Unable to determine (Please Define) ( ) Need to Discuss The medical record reflects the following clinical findings, treatment, and risk factors. Clinical Indicators: Initial Na 129, BUN 22. Reportedly pt was refusing to drink fluids after initially being diagnosed with UTI the day prior to present admission. Also developed nausea and vomiting. Treatment: 1.5 L NSS bolus then continuous fluids, serial PRP's Risk Factors: dehydration, UTI Please clarify and document your clinical opinion in the progress notes and discharge summary. Terms such as "probable", "suspected", "likely", "questionable", "possible", or "still to be ruled out" are acceptable. IF IN AGREEMENT, YOU MUST DOCUMENT ABOVE DIAGNOSTIC STATEMENT IN DAILY PROGRESS NOTES AND DISCHARGE SUMMARY. This document is not part of the patient's record. Thank You, Fara Rojas, RN [phone]
--- NOTE | 2017-06-18 13:32 | Progress Note ---
Subjective Date of Service: Jun 18, 2017. Subjective Pt evaluation today including: conversation w/ patient, physical exam, chart review, lab review, review of inpatient medication list feeling better still feels off kilter but better - oriented x 3 although takes two tries on year. no other new complaints - still a poor appetite. pleased with progress. Problem List Medical Problems: (1) Sepsis Status: Acute (2) Sepsis Status: Acute (3) Urinary tract infection Status: Acute Review of Systems all other ROS otherwise negative except for as above Objective Vital Signs Date Time Temp Pulse Resp B/P (MAP) Pulse Ox O2 Delivery O2 Flow Rate FiO2 06/18/17 12:00 94 Room Air 06/18/17 11:44 36.7 86 18 143/78 (99) 95 06/18/17 08:19 36.8 65 18 122/68 (86) 96 06/18/17 08:00 36.8 54 18 99/58 (72) 94 Room Air 06/18/17 08:00 94 Room Air 06/18/17 04:21 36.8 61 18 97/58 (71) 94 Room Air 06/18/17 04:00 Room Air 06/18/17 00:00 Room Air 06/17/17 23:57 37.3 59 17 91/49 (63) 92 Room Air 06/17/17 20:38 37.3 69 18 103/48 98 Room Air 06/17/17 19:34 75 18 104/54 98 Room Air 06/17/17 19:02 85 06/17/17 18:48 97 Room Air 06/17/17 18:43 37.9 102 22 152/118 96 Room Air Physical Exam General Appearance: no apparent distress Eyes: EOMI ENT: hearing grossly normal Neck: trachea midline Respiratory/Chest: no respiratory distress, no accessory muscle use Extremities: normal range of motion, no pedal edema, no calf tenderness 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, alert, normal mood/affect Laboratory Results Last 24 Hours Test 06/17/17 18:55 06/17/17 19:01 06/17/17 19:04 06/17/17 20:48 White Blood Count 16.69 K/uL Red Blood Count 3.80 M/uL Hemoglobin 13.1 g/dL Hematocrit 37.9 % Mean Corpuscular Volume 99.7 fL Mean Corpuscular Hemoglobin 34.5 pg Mean Corpuscular Hemoglobin Concent 34.6 g/dl Platelet Count 272 K/uL Mean Platelet Volume 9.6 fL Neutrophils (%) (Auto) 86.9 % Lymphocytes (%) (Auto) 5.5 % Monocytes (%) (Auto) 7.3 % Eosinophils (%) (Auto) 0.0 % Basophils (%) (Auto) 0.0 % Neutrophils # (Auto) 14.50 K/uL Lymphocytes # (Auto) 0.92 K/uL Monocytes # (Auto) 1.22 K/uL Eosinophils # (Auto) 0.00 K/uL Basophils # (Auto) 0.00 K/uL RDW Standard Deviation 47.4 fL RDW Coefficient of Variation 13.0 % Immature Granulocyte % (Auto) 0.3 % Immature Granulocyte # (Auto) 0.05 K/uL Prothrombin Time 11.3 SECONDS Prothromb Time International Ratio 1.1 Sodium Level 129 mmol/L 132 mmol/L Potassium Level 3.7 mmol/L 3.0 mmol/L Chloride Level 93 mmol/L 97 mmol/L Carbon Dioxide Level 28 mmol/L 27 mmol/L Anion Gap 8.0 mmol/L 13.0 mmol/L 8.0 mmol/L Blood Urea Nitrogen 22 mg/dl 20 mg/dl Creatinine 0.90 mg/dl 0.67 mg/dl Estimated GFR () 67.1 92.2 Estimated GFR (Non- 57.9 79.6 BUN/Creatinine Ratio 24.1 30.0 Random Glucose 104 mg/dl 100 mg/dl Calcium Level 7.9 mg/dl 7.2 mg/dl Magnesium Level 1.7 mg/dl Total Bilirubin 0.5 mg/dl Direct Bilirubin 0.2 mg/dl Aspartate Amino Transf (AST/SGOT) 19 U/L Alanine Aminotransferase (ALT/SGPT) 17 U/L Alkaline Phosphatase 93 U/L Total Creatine Kinase 363 U/L Creatine Kinase MB 2.3 ng/ml Creatine Kinase MB Ratio 0.6 Troponin I < 0.015 ng/ml Total Protein 6.5 gm/dl Albumin 3.1 gm/dl Bedside Lactic Acid Venous 2.73 mmol/L Bedside Hemoglobin 13.9 g/dl Bedside Hematocrit 41 % Bedside Sodium 124 mEq/L Bedside Potassium 6.4 mEq/L Bedside Chloride 93 mEq/L Bedside Total CO2 27 mEq/l Bedside Blood Urea Nitrogen 31 mg/dl Bedside Creatinine 0.8 mg/dl Bedside Glucose (other) 107 mg/dl Bedside Ionized Calcium (King) 0.84 mmol/l Est Creatinine Clear Calc Drug Dose 44.0 ml/min Test 06/17/17 23:12 06/18/17 05:02 Sodium Level 136 mmol/L 135 mmol/L Potassium Level 2.9 mmol/L 3.8 mmol/L Chloride Level 99 mmol/L 102 mmol/L Carbon Dioxide Level 26 mmol/L 27 mmol/L Anion Gap 11.0 mmol/L 6.0 mmol/L Blood Urea Nitrogen 19 mg/dl 17 mg/dl Creatinine 0.65 mg/dl 0.64 mg/dl Est Creatinine Clear Calc Drug Dose 45.3 ml/min 46.0 ml/min Estimated GFR () 93.2 93.6 Estimated GFR (Non- 80.4 80.8 BUN/Creatinine Ratio 29.3 27.2 Random Glucose 100 mg/dl 88 mg/dl Lactic Acid Level 0.7 mmol/L 0.7 mmol/L Calcium Level 6.9 mg/dl 7.0 mg/dl White Blood Count 11.58 K/uL Red Blood Count 3.03 M/uL Hemoglobin 10.2 g/dL Hematocrit 31.0 % Mean Corpuscular Volume 102.3 fL Mean Corpuscular Hemoglobin 33.7 pg Mean Corpuscular Hemoglobin Concent 32.9 g/dl Platelet Count 246 K/uL Mean Platelet Volume 10.1 fL Neutrophils (%) (Auto) 81.0 % Lymphocytes (%) (Auto) 7.5 % Monocytes (%) (Auto) 11.2 % Eosinophils (%) (Auto) 0.0 % Basophils (%) (Auto) 0.0 % Neutrophils # (Auto) 9.37 K/uL Lymphocytes # (Auto) 0.87 K/uL Monocytes # (Auto) 1.30 K/uL Eosinophils # (Auto) 0.00 K/uL Basophils # (Auto) 0.00 K/uL RDW Standard Deviation 49.9 fL RDW Coefficient of Variation 13.3 % Immature Granulocyte % (Auto) 0.3 % Immature Granulocyte # (Auto) 0.04 K/uL Magnesium Level 1.6 mg/dl Assessment and Plan 1) UTI - SIRS/sepsis w septic encephalopathy - improved. UTI w bentley sensitive E Coli - continue ceftriaxone for now. stable for med surg. orientation/ mentation now good just slightly forgetful but she notices this too and notes it 's not her normal self. 2) dehydration - improving w IVF. likely was contributing to encephalopathy as well 3) HTN - lisinopril / HCTZ held due to dehydration and hypokalemia 4) Confusion - acute appears to be septic encephalopathy, however, family states that this is a long-term issue. PT/OT eval and treat, assuming safe to go home will need ongoing and close PCP f/u 5) hypokalemia - repleted 6) hyperlipidemia - continue home meds Full code - Heparin prophylaxis
[2017-06-18] MEDS: CEFTRIAXONE SOD INJ 1 GM in DEXTROSE 5% ADD-VANTAGE 50ML 50 ML IV SCH (20:48)
[2017-06-18] MEDS: SIMVASTATIN 40 MG TAB PO SCH (20:48)
[2017-06-19 00:28] VITALS: BP 113/58; PULSE 53; TEMP 36.7; O2SAT 95
[2017-06-19] MEDS: HEPARIN SOD 5000 UNIT/0.5 ML CARP SQ SCH ×3 (05:36→20:18)
[2017-06-19 06:35] VITALS: BP 121/66; PULSE 56; TEMP 36.5; O2SAT 94
[2017-06-19 08:06] VITALS: O2SAT 94
--- NOTE | 2017-06-19 08:06 | Hospitalist Progress Note ---
Hospitalist Progress Note Date of Service Jun 19, 2017. (Carlee Rhodes PA-C) Subjective Pt evaluation today including: conversation w/ patient, physical exam, chart review, lab review, review of studies Pain: None PO Intake: Fair Voiding: meyer catheter in place The patient was seen and examined this morning. Pt reports doing well today but that she's not completely back to her normal self. She is realizing she did not make much sense and that she was very confused prior to her admission for urosepsis. She denies any fevers, chills or sweats, she has a meyer catheter in place currently and draining dark yellow urine. All her questions and concerns were addressed. Constitutional: No fever, No chills, No sweats Eyes: No discharge, No problem reported ENT: No nasal symptoms, No trouble swallowing Respiratory: No cough, No sputum, No shortness of breath Cardiovascular: No chest pain, No palpitations Abdomen: No pain, No nausea, No vomiting, No diarrhea, No constipation Musculoskeletal: No joint pain, No calf pain Female : + see HPI Neurologic: + weakness (improving), No numbness/tingling Skin: No rash, No itch (Carlee Rhodes PA-C) Objective Vital Signs Date Time Temp Pulse Resp B/P (MAP) Pulse Ox O2 Delivery O2 Flow Rate FiO2 06/19/17 06:35 36.5 56 16 121/66 (84) 94 Room Air 06/19/17 00:28 36.7 53 18 113/58 (76) 95 Room Air 06/19/17 00:00 Room Air 06/18/17 17:02 Room Air 06/18/17 15:15 36.7 51 16 108/58 (75) 96 06/18/17 14:01 36.7 86 18 94 06/18/17 12:00 94 Room Air 06/18/17 11:44 36.7 86 18 143/78 (99) 95 06/18/17 08:19 36.8 65 18 122/68 (86) 96 06/18/17 08:00 36.8 54 18 99/58 (72) 94 Room Air 06/18/17 08:00 94 Room Air (Filipowicz,Carlee G., PA-C) Physical Exam General Appearance: WD/WN, no apparent distress, + thin Eyes: PERRL, EOMI ENT: hearing grossly normal, pharynx normal Neck: supple, no JVD Respiratory/Chest: lungs clear, normal breath sounds, no respiratory distress, no accessory muscle use Cardiovascular: regular rate, rhythm Abdomen: normal bowel sounds, non tender, soft Extremities: non-tender, no pedal edema, no calf tenderness Neurologic/Psychiatric: no motor/sensory deficits, alert, normal mood/affect, + disoriented (oriented to self and place, not time or date, she can tell me current news events. ) Skin: normal color, warm/dry (Carlee Rhodes, ZENAC) Assessment and Plan 86 yo F UTI - SIRS/sepsis w septic encephalopathy - improved. UTI w bentley sensitive E Coli - continue ceftriaxone for now- day # 2 - orientation/mentation improved, slightly forgetful but she notices this too and notes it's not her normal self. Pt is unable to tell me the date or month. She requires some thinking to say it is 2016. Dehydration - improving w IVF. likely was contributing to encephalopathy as well - encourage oral intake. HTN - lisinopril / HCTZ held due to dehydration and hypokalemia- BP resolved. Confusion - acute - appears to be septic encephalopathy, however, family states that this is a long-term issue. - PT/OT eval and treat, assuming safe to go home will need ongoing and close PCP f/u Hypomagnesemia - Started on mag oxide 400 mg BID, continue. Follow with am labs. Hypokalemia - repleted Hyperlipidemia - continue home meds DVT ppx: Heparin subq CODE STATUS: FULL CODE Disposition: Pt from home, lives alone. Possible d/c tomorrow. (Carlee Rhodes PA-C) PASCALE Physician Supervision Note: I interviewed and examined the patient. Discussed with Carlee Rhodes PAC and agree with findings and plan as documented in the note. Any exceptions or clarifications are listed here: None Patient was seen in her room she is fairly intact mentally she says she feels she's 80% return to normal she is having no dysuria or frequency This patient vital signs are stable her heart is regular lungs are clear Patient is here with encephalopathy suspected to be from a urinary source service she will receive PT OT evaluation continue antibiotic therapy and if improves may be able to return to her home environment although she does live alone will pursue home health initially and for a few weeks Documented By: Quentin Cheatham (Quentin Cheatham M.D.)
[2017-06-19] MEDS: MAGNESIUM OXIDE 400 MG TAB PO SCH ×2 (08:29→20:08)
[2017-06-19] MEDS: POTASSIUM CHLORIDE 20 MEQ TABCR PO SCH ×2 (08:29→20:08)
[2017-06-19] MEDS: PANTOprazole SOD 40 MG TAB PO PRN (08:30)
[2017-06-19 11:30] VITALS: BP 106/64; PULSE 53; TEMP 36.4; O2SAT 97
[2017-06-19 15:37] VITALS: BP 121/71; PULSE 52; TEMP 36.4; O2SAT 97
[2017-06-19] MEDS: CEFTRIAXONE SOD INJ 1 GM in DEXTROSE 5% ADD-VANTAGE 50ML 50 ML IV SCH (20:08)
[2017-06-19] MEDS: SIMVASTATIN 40 MG TAB PO SCH (20:08)
[2017-06-19 23:31] VITALS: BP 115/61; PULSE 55; TEMP 36.7; O2SAT 96
[2017-06-20 05:44] LABS: MEAN CELL VOLUME 102.4 fL (80-100); MEAN CORPUSCULAR HEMOGLOBIN 32.5 pg (25-34); MEAN CORPUSCULAR HGB CONC 31.8 g/dl (32-36); MEAN PLATELET VOLUME 9.7 fL (7.4-10.4); PLATELET COUNT 289 K/uL (130-400); RED BLOOD COUNT 3.32 M/uL (4.2-5.4); WHITE BLOOD COUNT 5.97 K/uL (4.8-10.8)
[2017-06-20] MEDS: HEPARIN SOD 5000 UNIT/0.5 ML CARP SQ SCH ×2 (06:19→14:34)
[2017-06-20 07:30] VITALS: BP 128/66; PULSE 58; TEMP 36.4; O2SAT 96
[2017-06-20 07:56] VITALS: O2SAT 95
[2017-06-20] MEDS: POTASSIUM CHLORIDE 20 MEQ TABCR PO SCH (08:03)
[2017-06-20] MEDS: MAGNESIUM OXIDE 400 MG TAB PO SCH (08:04)
[2017-06-20 08:15] VITALS: O2SAT 95
[2017-06-20] MEDS ORDERED: MGNO400 PO (12:01)
[2017-06-20] MEDS ORDERED: MRLP17X PO (12:01)
[2017-06-20] MEDS ORDERED: CPR500 PO (12:01)
--- NOTE | 2017-06-20 12:05 | Discharge Instructions ---
Discharge Instructions Date of Service Jun 20, 2017. Admission Reason for Admission: Sepsis;Uti (Uninary Tract Infection) Discharge Discharge Diagnosis / Problem: Urinary tract infection Discharge Goals Goal(s): Decrease discomfort, Improve function, Increase independence, Improve disease control Activity Recommendations Activity Limitations: resume your previous activity Lifting Limitations: none, no more than 25 pounds, gradually increase as tolerated Exercise/Sports Limitations: rest today, gradually increase as tolerated May Resume Sexual Activity: when tolerated Shower/Bathe: no limitations Driving or Machine Use: Do not drive until cleared by your family physician . Instructions / Follow-Up Instructions / Follow-Up You were admitted to [facility] with urinary tract infection and diagnosed with same. During your stay here you were treated with intravenous antibiotics, fluids and other supportive care. Medications: You have been started on an antibiotic called ciprofloxacin (Cipro) 500 mg twice daily. Take the first dose tonight. Eat a yogurt with active cultures in it, like Activia, to help support normal healthy gut bacteria. Continue taking mag-oxide tablets for low magnesium. Discuss continuing this with your family physician at your follow up appointment. Continue taking miralax for your bowels if you do not have a bowel movement within 2 days. Continue taking your other medications as prescribed. Appointments: Follow up with your Primary Care Provider within 1 week. Current Hospital Diet Patient's current hospital diet: AHA Diet (Heart Healthy), Low Potassium Diet ( 2g K) Discharge Diet Recommended Diet: AHA Diet (Heart Healthy) Pending Studies Studies pending at discharge: no Medical Emergencies . Who to Call and When: Medical Emergencies: If at any time you feel your situation is an emergency, please call 911 immediately. . Non-Emergent Contact Non-Emergency issues call your: Primary Care Provider Call Non-Emergent contact if: you have a fever, temperature is above 100.5, your pain is not controlled, your pain is worsening, your pain is unusual for you, your pain is concerning you, you have any medication questions other concerns with your health. Call 911 or go directly to the Emergency Department if you experience any of the following: Chest pain, chest tightness, shortness of breath, abdominal pain , lightheadedness, dizziness, gastrointestinal bleeding, or have any other concerns regarding your health. . Past History Medical & Surgical History: (1) Urinary tract infection (2) Sepsis . "Provider Documentation" section prepared by Patsy Rhodes. . VTE Core Measure Inpt VTE Proph given/why not?: Zack Naqvi, SCD's
[2017-06-20 12:32] VITALS: BP 128/66; PULSE 58; TEMP 36.4; O2SAT 95
--- NOTE | 2017-06-20 12:56 | Discharge Summary ---
Discharge Summary Date of Service Jun 20, 2017. (Carlee Rhodes PA-C) Discharge Summary Admission Date: Jun 17, 2017 at 19:33 Discharge Date: Jun 20, 2017 Discharge Disposition: Home Principal Diagnosis: Urinary sepsis Problems/Secondary Diagnoses: Urosepsis, metabolic encephalopathy secondary to urosepsis, HTN, Hyperlipidemia , dehydration, hypokalemia, hypomagnesemia Procedures: CHEST ONE VIEW PORTABLE CLINICAL HISTORY: 86 years-old Female presenting with fever. TECHNIQUE: Portable upright AP view of the chest was obtained. COMPARISON: 06/16/2017. FINDINGS: Atherosclerosis of aortic arch through the cardiac silhouette normal in size. Minimal basilar opacities. No large effusion or pneumothorax. Focal kyphotic deformity suggested secondary to altered appearance of a lower thoracic vertebral body. Upper abdomen normal. IMPRESSION: 1. Minimal bibasilar atelectasis. No other focal infiltrate to suggest pneumonia. 2. Focal kyphotic deformity suggested secondary to altered appearance of the lower thoracic vertebral body. Electronically signed by: Luis E Cornejo M.D. 06/17/2017 7:16 PM Dictated Date/Time: 06/17/2017 7:15 PM The status of this report is Signed. Consultations: None (Carlee Rhodes PA-C) Medication Reconciliation New Medications: Ciprofloxacin (Ciprofloxacin HCl) 500 Mg Tab 500 MG PO BID for 5 Days, #10 TAB Magnesium Oxide (Magnesium-Oxide) 400 Mg Tab 400 MG PO BID for 30 Days, #60 TAB Polyethylene (Miralax) 17 Gm Pow 17 GM PO DAILY PRN for Constipation for 30 Days, #30 DOSE Continued Medications: Alendronate/Cholecalciferol (Fosamax+D 70MG/2800 Iu) 70 Mg Tab 1 TABLET PO WK, TAB Cholecalciferol (Vitamin D) 400 Unit Tab 400 UNITS PO DAILY Hctz/Lisinopril (Lisinopril/Hctz 10/12.5 Mg) 1 Ea Tab 1 TAB PO DAILY, TAB Magnesium Oxide (Mag-Ox) 400 Mg Tab 400 MG PO DAILY, TAB Ocuvite Preservision (Ocuvite Preservision) 1 Tab Tab 1 TAB PO BID, TAB Pantoprazole (Protonix) 40 Mg Tab 40 MG PO DAILY PRN for ACID REFLUX, #30 TAB Simvastatin (Zocor) 40 Mg Tab 40 MG PO QPM, TAB Discontinued Medications: Cefdinir (Omnicef) 300 Mg Cap 300 MG PO Q12H for 10 Days, #20 CAP Discharge Exam The patient was seen and examined this morning. Pt reports feeling well this morning. She denies any pain, hematuria, increased frequency or dysuria. She had a bowel movement this morning. She is anticipating going home. Pt requested a rolling walker prescription as hers recently broke and she no longer has one. She is planning to go home and live with her son. Review of Systems: Constitutional: No fever, No chills, No sweats Eyes: No redness ENT: No tinnitus, No trouble swallowing Respiratory: No shortness of breath, No dyspnea on exertion Cardiovascular: No chest pain, No palpitations Abdomen: No pain, No nausea, No vomiting, No diarrhea, No constipation, No GI bleeding Musculoskeletal: No muscle pain, No swelling Genitourinary - Female: No dysuria, No urinary frequency, No hematuria Neurologic: No numbness/tingling, No balance problems Endocrine: No fatigue Integumentary: No rash, No itch Physical Exam: General Appearance: WD/WN, no apparent distress, + thin Eyes: PERRL, EOMI ENT: TMs normal, pharynx normal Neck: supple, no JVD Respiratory/Chest: lungs clear, no respiratory distress, no accessory muscle use Cardiovascular: regular rate, rhythm, no murmur, normal peripheral pulses Abdomen / GI: normal bowel sounds, non tender, soft Extremities: no calf tenderness, no pedal edema Neurologic/Psychiatric: alert, normal mood/affect, oriented x 3 Skin: normal color, warm/dry (Carlee Rhodes, MARITZA) Hospital Course History of Present Illness 86 y/o F HTN, HPL - presented with fever 06/16 - has had intermittent bouts of confusion over 2-3 weeks. Pt was not confused when assessed in ER - initial labs reveal a + UA and following IVF and IV antibiotics, decision was made to DC home. She was under the care of family who would be able to look after her in the event of worsening confusion. She had persistent fevers in addition to confusion throughout the day at home. She also developed nausea and vomiting and was therefore unable to tolerate her medication. Initial labs are consistent with dehydration although not RF in addition to leukocytosis. Hyperkalemia is present although we are pending a repeat as this may be hemolyzed. Physical Exam Date Time Temp Pulse Resp B/P (MAP) Pulse Ox O2 Delivery O2 Flow Rate FiO2 06/16/17 22:00 71 20 120/65 94 Room Air 06/16/17 20:42 77 20 125/60 93 Room Air 06/16/17 19:54 84 06/16/17 19:19 38.2 99 20 123/52 93 Room Air General Appearance: Thin elderly female no acute distress ENT: hearing grossly normal, pharynx normal Neck: no adenopathy, no JVD, no carotid bruits Respiratory/Chest: lungs clear, no respiratory distress, no accessory muscle use Cardiovascular: regular rate, rhythm, no edema, no murmur, normal peripheral pulses Abdomen/GI: normal bowel sounds, non tender, soft Back: normal inspection, no CVA tenderness Extremities/Musculoskelatal: normal inspection, no calf tenderness, no pedal edema, normal range of motion, non-tender Neurologic/Psych: alert, normal mood/affect, oriented x 3 Skin: normal color, warm/dry, no rash Hospital Course: 86 yo F UTI - SIRS/sepsis w septic encephalopathy - improved. UTI w bentley sensitive E Coli - continue ceftriaxone for now- day # 3. - Urine culture growing pansensitive E. coli. Will switch to cipro 500 BID x 5 more days to complete a 7 day course. Finish on 06/25 - orientation/mentation improved, she is able to recall the month and year without difficulty today, but is unable to tell me the exact date. - PT/OT eval and treat, assuming safe to go home will need ongoing and close PCP f/u - arranged for within 1 week. - Rolling walker prescription given to the pt at bedside. Dehydration - initially required IVF. likely was contributing to encephalopathy as well - encourage oral intake.- Resolved. HTN - lisinopril / HCTZ held due to dehydration and hypokalemia- BP resolved. - resumed at time of discharge. Hypomagnesemia - Started on mag oxide 400 mg BID, continue. Follow with am labs. Hypokalemia - repleted Hyperlipidemia - continue home meds DVT ppx: Heparin subq CODE STATUS: FULL CODE Disposition: Pt from home, living with her son at time of discharge, dc today. Total Time Spent: Greater than 30 minutes This includes examination of the patient, discharge planning, medication reconciliation, and communication with other providers. (Carlee Rhodes PA-C) PASCALE Physician Supervision Note: I interviewed and examined the patient. Discussed with Carlee Rhodes PAC and agree with findings and plan as documented in the note. Any exceptions or clarifications are listed here: None This patient was seen in her room at her bedside she really says she is returned to her normal state she is planning on going to live with her son as she recovers from this urinary tract infection encephalopathy. Her UTI is pansensitive Escherichia coli Her vital signs have been stable overnight he's been eating and drinking and ambulating in the room without difficulty She'll be discharged home on 5 additional days of ciprofloxacin some MiraLAX and magnesium with one-week follow-up with her outpatient PCP we offered home health but since she is going to live with her son and she recommended that she would prefer to not have home health see her Documented By: Quentin Cheatham (Quentin Cheatham M.D.) Discharge Instructions Please refer to the electronic Patient Visit Report (Discharge Instructions) for additional information. (Carlee Rhodes PA-C) Follow-Up Follow up with your Primary Care Provider within 1 week. (Carlee Rhodes PA-C) Additional Copies To Mei Matta M.D.
== END 2017-06-20 16:13 | disposition home or self-care (01) | DRG 871 ==
LOC: EDBD 18:35 → C.EDA 18:36 → C.2T 19:33 → ENRESERV 19:48 → C.4E 06-18 14:37
PROVIDERS: ADMIT Internal Medicine; ATTEND Internal Medicine
DX: A41.9 Sepsis, unspecified organism (principal); G93.41 Metabolic encephalopathy; N39.0 Urinary tract infection, site not specified; K21.9 Gastro-esophageal reflux disease without esophagitis; E87.6 Hypokalemia; E78.5 Hyperlipidemia, unspecified; E83.42 Hypomagnesemia; E86.0 Dehydration; M85.80 Other specified disorders of bone density and structure, unspecified site; Z96.641 Presence of right artificial hip joint; Z87.440 Personal history of urinary (tract) infections; Z87.891 Personal history of nicotine dependence; R31.9 Hematuria, unspecified; I10 Essential (primary) hypertension; Z91.81 History of falling; Z79.899 Other long term (current) drug therapy

== ENCOUNTER → 2018-01-15 | Outpatient (CLI) | payer BC ==
[~2018-01-15] MED LIST changes: -CEFD1CAP14 PO; +CPR500 PO; +MGNO400 PO; +MRLP17X PO
[2018-01-15 11:59] LABS: ALT/SGPT 18 U/L (12-78); BLOOD UREA NITROGEN 24 mg/dl (7-18); CALCIUM 9.2 mg/dl (8.5-10.1); CARBON DIOXIDE 31 mmol/L (21-32); CHOLESTEROL 188 mg/dl (0-200); CREATININE 0.92 mg/dl (0.60-1.20); GLUCOSE 97 mg/dl (70-99); POTASSIUM 3.7 mmol/L (3.5-5.1); SODIUM 135 mmol/L (136-145)
[2018-01-15 12:01] LABS: LDL CHOLESTEROL CALCULATED 88 mg/dl
== END | disposition home or self-care (01) ==
LOC: C.LABBC 08:45
PROVIDERS: ATTEND Family Medicine
DX: E55.9 Vitamin D deficiency, unspecified (principal); I10 Essential (primary) hypertension; E78.00 Pure hypercholesterolemia, unspecified